=== PATIENT | male | born 2000 | race African-American/Black ===

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

== ENCOUNTER 2025-04-17 10:27 | Observation (INO) ==
[2025-04-17] MEDS: NS 1,000 ML IV 1,000 ML IV ONE (10:42)
--- NOTE | 2025-04-17 10:51 | DR.N/VMALE ---
HPI Time Seen Time Seen by Provider: 04/17/25 10:42 Primary Care Physician Primary Care Physician: NFD Complaints Chief Complaint Doctors Comments: Patient complain of nausea and vomiting for 4 days.Seen here in ER 4 days ago and treated for viral gastroenteritis.Patient was sent home with Zofran and ODT he said that has not been helping his nausea and vomiting. Chief Complaint:: patient brought via EMS with c/o NV and abdominal cramps since . reports he last vomited prior to EMS arrival COVID-19 Coronavirus risk:travel/contact w/high risk person: No Has patient experienced Coronavirus symptoms: No Source History Provided: Patient Mode of Arrival Mode of Arrival: EMS Timing Onset of Chief Complaint: 04/14/25 PMH PMH Past Medical History: No Past Surgical History: No Surgical History: No History Family History History of Family Medical Conditions: Yes Family Medical History: Diabetes Mellitus, Coronary Artery Disease and Hypertension Social History Type of Tobacco Use: Vape Alcohol Use: None Do you use any recreational Drugs:: No Lives With: Mom Lives Where: Home Travel Risk Coronavirus risk:travel/contact w/high risk person: No Has patient experienced Coronavirus symptoms: No Infectious screening Have you traveled outside the country in the last 6 months?: No Isolation: Standard ROS Review of Systems Constitutional: Other (Nausea and vomiting with generalized abdominal pain.) Eyes: No Symptoms Reported ENTM: No Symptoms Reported Respiratoy: No Symptoms Reported Cardiovascular: No Symptoms Reported Gastrointestinal/Abdominal: Abdominal Pain, Nausea and Vomiting Genitourinary: No Symptoms Reported Neurological: No Symptoms Reported Musculoskeletal: No Symptoms Reported Integumentary: No Symptoms Reported Hematologic/Lymphatic: No Symptoms Reported Endocrine: No Symptoms Reported Psychiatric: No Symptoms Reported All Other Systems: Reviewed and Negative PE Vital Signs Vitals: Vital Signs Temperature 98.0 F Pulse Rate 56 Pulse Rate 58 Pulse Rate 56 Pulse Rate 56 Pulse Rate 62 Pulse Rate 73 Pulse Rate 63 Respiratory Rate 17 Respiratory Rate 18 Respiratory Rate 18 Blood Pressure 128/64 Blood Pressure 127/74 Blood Pressure 136/64 Blood Pressure 136/63 Blood Pressure 150/79 Blood Pressure 154/81 Blood Pressure 154/81 O2 Sat by Pulse Oximetry 97 O2 Sat by Pulse Oximetry 97 O2 Sat by Pulse Oximetry 99 O2 Sat by Pulse Oximetry 95 O2 Sat by Pulse Oximetry 99 O2 Sat by Pulse Oximetry 100 O2 Sat by Pulse Oximetry 100 General Limitations: No Limitations General Appearance: In Distress (mild distress) Head Head Exam: Normal Inspection Eyes Eye exam: Normal Appearance and PERRL ENT ENT Exam: Normal Exam and Normal Oropharynx Chest Chest Inspection: Normal Inspection Respiratory Respiratory Exam: Normal Lung Sounds Bilat Abdominal Exam Abdominal Exam: Normal Inspection, Normal Bowel Sounds and Soft Rectal Rectal Exam: Deferred Extremities Extremities Exam: Normal Inspection Back Back Exam: Normal Inspection Neurologic Neurological Exam: Alert, Oriented X3 and CN II-XII Intact Psychiatric Psychiatric Exam: Normal Affect Skin Skin Exam: Warm, Dry and Intact MDM Differential Diagnosis Differential Diagnosis: Considerations may Include:: Bowel Obstruction, Gastroenteritis and Other (enteritis) COURSE Treatment Treatment: This patient continue to have abdominal pain with some nausea and vomiting in the emergency department. We did do blood work on him and he initially had a white count of about 15.5 and his potassium was little bit low at 3.2 he was given potassium chloride 40 mg orally in ER. The patient also was given an IV in which she got a 1 L bolus of normal saline here and the got Zofran 4 mg IV. We did do a CT scan of the abdomen pelvis and it showed that he had subcu sup, pharyngeal thickening of the distal esophagus said the finding concerning for esophagitis. The right visualization could better evaluate.Speak to Dr. Terrell at 1400 and he said to put the patient in the hospital and he will come and evaluate that patient may need to do an upper endoscopy.Patient was given morphine 2 mg IV in the ER for pain he said it did help his pain.The patient was admitted observation he was placed n.p.o. and given medications for pain and Protonix 40 mg IV daily and started on IV of normal saline at 125 cc an hour. ROR Labs Reviewed Laboratory Results Reviewed?: Yes 04/17/25 10:55 04/17/25 10:55 Laboratory: WBC 15.5 X10^3/uL (3.6-10.0) H 04/17/25 10:55 RBC 6.42 X10^6/uL (4.7-6.0) H 04/17/25 10:55 Hgb 17.1 g/dL (13.5-18.0) 04/17/25 10:55 Hct 49.7 % (42.0-54.0) 04/17/25 10:55 MCV 77.4 fL (80.0-100.0) L 04/17/25 10:55 MCH 26.6 pg (27.0-34.0) L 04/17/25 10:55 MCHC 34.4 g/dL (33.0-35.0) 04/17/25 10:55 RDW 13.9 % (11.6-16.5) 04/17/25 10:55 Plt Count 317 X10^3/uL (150.0-450.0) 04/17/25 10:55 Plt Count Comment Adequate (ADEQUATE) 04/17/25 10:55 MPV 7.4 fL (7.4-11.0) 04/17/25 10:55 Neut % (Auto) 74.2 % (42.0-75.0) 04/17/25 10:55 Lymph % (Auto) 12.6 % (21.0-51.0) L 04/17/25 10:55 Reagan % (Auto) 11.6 % (0.0-13.0) 04/17/25 10:55 Eos % (Auto) 0.0 % (0.9-2.9) L 04/17/25 10:55 Baso % (Auto) 1.6 % (0.2-1.0) H 04/17/25 10:55 Neut # (Auto) 11.5 x10^3/uL (2.2-4.8) H 04/17/25 10:55 Lymph # (Auto) 1.9 X10^3/uL (1.3-2.9) 04/17/25 10:55 Reagan # (Auto) 1.8 x10^3/uL (0.3-0.8) H 04/17/25 10:55 Eos # (Auto) 0.0 x10^3/uL (0.0-0.2) 04/17/25 10:55 Baso # (Auto) 0.2 X10^3/uL (0.0-0.1) H 04/17/25 10:55 Absolute Nucleated RBC 0.0 /100WBC 04/17/25 10:55 Total Counted 100 04/17/25 10:55 Neutrophils % (Manual) 75 % (39-76) 04/17/25 10:55 Lymphocytes % (Manual) 16 % (13-43) 04/17/25 10:55 Monocytes % (Manual) 7 % (4-9) 04/17/25 10:55 Plt Morphology Comment Normal (NORMAL) 04/17/25 10:55 RBC Morphology Abnormal (NORMAL) 04/17/25 10:55 Hypochromasia Slight A 04/17/25 10:55 Microcytosis Slight A 04/17/25 10:55 Target Cells Present 04/17/25 10:55 Sodium 139 mmol/L (136-145) 04/17/25 10:55 Corrected Sodium TNP 04/17/25 10:55 Potassium 3.2 mmol/L (3.5-5.1) L 04/17/25 10:55 Chloride 99 mmol/L (98-107) 04/17/25 10:55 Carbon Dioxide 32.1 mmol/L (21-32) H 04/17/25 10:55 BUN 17 mg/dL (7-18) 04/17/25 10:55 Creatinine 1.16 mg/dL (0.70-1.30) 04/17/25 10:55 Est GFR (MDRD) Af Amer > 60 (>60) 04/17/25 10:55 Est GFR (MDRD) Non-Af > 60 (>60) 04/17/25 10:55 Glucose 107 mg/dL (65-99) H 04/17/25 10:55 Calcium 9.1 mg/dL (8.5-10.1) 04/17/25 10:55 Corrected Calcium TNP 04/17/25 10:55 Total Bilirubin 1.40 mg/dL (0.2-1.0) H 04/17/25 10:55 AST 16 Units/L (15-37) 04/17/25 10:55 ALT 41 Units/L (12-78) 04/17/25 10:55 Alkaline Phosphatase 80 Units/L (46-116) 04/17/25 10:55 Total Protein 9.0 g/dL (6.4-8.2) H 04/17/25 10:55 Albumin 4.5 g/dL (3.4-5.0) 04/17/25 10:55 Globulin 4.5 g/dL (2.5-4.5) 04/17/25 10:55 Albumin/Globulin Ratio 1.0 Ratio (1.1-2.1) L 04/17/25 10:55 SARS-CoV-2 (PCR) Negative (NEGATIVE) 04/17/25 10:36 Influenza Type A (PCR) Negative (NEGATIVE) 04/17/25 10:36 Influenza Type B (PCR) Negative (NEGATIVE) 04/17/25 10:36 RSV (PCR) Negative (NEGATIVE) 04/17/25 10:36 Opioid Opioid Risk Tool Age (Asad box if 16-45): Yes History of Preadolescent Sexual Abuse: No Total: 1 Total Score Risk Category: Low Risk Copyright: Rodolfo MOONEY predicting aberrant behaviors Discharge Plan Diagnosis Discharge Problem: Esophagitis, Abdominal pain, Intractable nausea and vomiting Discharge Plan Patient Disposition: ADMITTED INPATIENT Condition: Stable
[2025-04-17 11:00] LABS: MEAN PLATELET VOLUME 7.4 fL (7.4-11.0); RED CELL DISTRIBUTION WIDTH 13.9 % (11.6-16.5)
[2025-04-17 11:11] LABS: CREATININE 1.16 mg/dL (0.70-1.30); eGFR NON BLACK RACES > 60 (>60)
--- NOTE | 2025-04-17 11:21 | CT ---
EXAM: ABDOMEN/PELVIS W/O CON HISTORY: INTRACTABLE NAUSEA/VOMITING WITH ABDOMEN PAIN; PT STATES HE HAS HAD MID ABDOMINAL PAIN X3 DAYS WITH N/V COMPARISON: 04/14/2025 TECHNIQUE: CT of the abdomen and pelvis obtained without IV contrast. Study limited due to lack of IV contrast. Dose reduction techniques including Automated Exposure Control (AEC) and adjustment of mA and kV were utilized. FINDINGS: The visualized portions of the lower thorax demonstrate no acute process. Circumferential thickening of the distal esophagus. No acute osseous abnormality. The liver, gallbladder, spleen, pancreas, bilateral adrenal glands, and bilateral kidneys demonstrate no acute process given lack of IV contrast. No evidence of bowel obstruction. The appendix is unremarkable. The bladder is unremarkable. No free air or fluid. Nonaneurysmal aorta. IMPRESSION: No acute findings in the abdomen or pelvis. Findings concerning for esophagitis. Direct visualization could better evaluate. THIS IS AN ELECTRONICALLY VERIFIED FINAL REPORT 04/17/2025 11:16 AM - Electronically signed by Loe Rogers MD
[2025-04-17 11:36] LABS: PLATELET MORPHOLOGY COMMENT NORMAL (NORMAL)
[2025-04-17] MEDS: K-DUR TAB 20 MEQ PO ONE (11:46)
[2025-04-17] MEDS: PROTONIX INJ 40 MG VIAL IVP ONE (11:54)
[2025-04-17] MEDS: MORPHINE SULFATE INJ 2 MG INJ IVP ONE (11:54)
[2025-04-17] MEDS: ZOFRAN INJ 4 MG VIAL IVP ONE (11:54)
[2025-04-17] MEDS ORDERED: MORPHINE SULFATE INJ 2 MG INJ IVP PRN (14:48)
[2025-04-17] MEDS: NS 1,000 ML IV 1,000 ML IV SCH (15:22)
[2025-04-17] MEDS: NS 1,000 ML IV 1,000 ML ONE (15:26)
[2025-04-17 15:31] VITALS: BMI 34.9
[2025-04-17 16:02] LABS: BLOOD/HEMOGLOBIN,URINE 2+ (NEGATIVE); LEUKOCYTE ESTERASE ,URINE NEGATIVE (NEGATIVE); NITRITES,URINE NEGATIVE (NEGATIVE)
[2025-04-17] MEDS: LEVAQUIN PREMIX IV 500 MG 500 MG/100 ML BAG IV SCH (16:11)
[2025-04-17 16:14] LABS: APPEARANCE,URINE CLEAR (CLEAR)
[2025-04-17 16:15] LABS: SQUAMOUS EPITHELIAL CELL,UR NEGATIVE /HPF (NEGATIVE)
[2025-04-17] MEDS: RESTORIL CAP 15 MG PO PRN (21:51)
[2025-04-17] MEDS: ZOFRAN INJ 4 MG VIAL IVP PRN (22:03)
[2025-04-18 06:19] LABS: MEAN PLATELET VOLUME 7.5 fL (7.4-11.0); RED CELL DISTRIBUTION WIDTH 13.8 % (11.6-16.5)
[2025-04-18 06:30] LABS: CREATININE 1.13 mg/dL (0.70-1.30); eGFR NON BLACK RACES > 60 (>60)
[2025-04-18] MEDS: CONSULT PHARMACY - POTASSIUM & MAGNESIUM XX SCH (07:38)
[2025-04-18] MEDS: PROTONIX INJ 40 MG VIAL IVP SCH (08:07)
[2025-04-18] MEDS: PHENERGAN INJ 25 MG IM PRN (08:13)
[2025-04-18] MEDS: NS + KCL 20 MEQ/L 1,000 ML IV SCH (09:18)
[2025-04-18] MEDS: LR 1,000 ML IV 1,000 ML IV ONE (09:43)
[2025-04-18] MEDS: DIPRIVAN VIAL 20 ML ONE ×2 (10:22→10:23)
[2025-04-18 12:37] VITALS: BP 155/80; PULSE 66; RESP 16; TEMP 97.9; O2SAT 99
--- NOTE | 2025-04-18 13:33 | US ---
EXAM: GALL BLADDER HISTORY: ABD PAIN, INTRACTABLE N/V; Unavailable COMPARISON: None. TECHNIQUE: [facility] tiple griffith scale and color flow Doppler images of the right upper quadrant were obtained. FINDINGS: The liver is normal in echotexture and normal in size. No focal intraparenchymal mass or intrahepatic biliary ductal dilatation is observed. The gallbladder does not demonstrate cholelithiasis or layering sludge. The common bile duct is normal in size for age, measuring 4 mm. No pericholecystic fluid or gallbladder wall thickening is observed. The right kidney is normal in size without focal parenchymal mass or nephrolithiasis. The right kidney measurers 11 x 5 cm. No hydronephrosis or perirenal fluid can be observed. The pancreas is largely obscured by overlying bowel gas. IMPRESSION: Unremarkable examination of the right upper quadrant. THIS IS AN ELECTRONICALLY VERIFIED FINAL REPORT 04/18/2025 1:23 PM - Electronically signed by Elliott Gonzales MD
[2025-04-18] MEDS ORDERED: PROTONIX INJ 40 MG VIAL IVP SCH (21:00)
== END 2025-04-18 13:50 | disposition home or self-care (01) ==
LOC: MED/SURG 10:27 → ER 10:27 → MED/SURG 15:03
PROVIDERS: ADMIT Surgery; ATTEND Surgery
DX: R10.84 Generalized abdominal pain; K82.8 Other specified diseases of gallbladder; R13.11 Dysphagia, oral phase; R11.2 Nausea with vomiting, unspecified; K29.00 Acute gastritis without bleeding; F12.90 Cannabis use, unspecified, uncomplicated; E87.6 Hypokalemia; E80.6 Other disorders of bilirubin metabolism; D72.828 Other elevated white blood cell count; K21.00 Gastro-esophageal reflux disease with esophagitis, without bleeding